=== PATIENT | male | born 1995 | race Caucasian/White ===

== ENCOUNTER 2018-09-10 18:23 | Emergency (ER) | payer MEDICAID ==
[~2018-09-10] VITALS: Wt 84.5 kg
[2018-09-10] MEDS ORDERED: CEPH-443 PO (21:39)
--- NOTE | 2018-09-10 21:45 | ERD ---
ER Documentation Chief Complaint Chief Complaint ATTEMPTED TO DRAIN BLEMISH ON FACE BY INCISION HPI 23-year-old male presents with ruptured cyst to the right side of his face. Patient states that 4 hours ago a pen knife and incised the cyst himself. Denies any fevers, discharge from the wound site. Up-to-date on tetanus. Denies past medical history. Denies allergies. Denies medications. Denies surgeries. Denies alcohol, tobacco, drug use. Up to date on vaccines. ROS All systems reviewed and are negative except as per history of present illness. Medications Home Meds Active Scripts Cephalexin* (Keflex*) 500 Mg Capsule, 500 MG PO QID for skin infection for 5 Days, #20 CAP Prov:SATHYA MORRIS 09/10/18 Allergies Allergies: Coded Allergies: No Known Allergy (Unverified , 10/11/13) PMhx/Soc Medical and Surgical Hx: pt denies Medical Hx, pt denies Surgical Hx History of Surgery: No Anesthesia Reaction: No Hx Neurological Disorder: No Hx Respiratory Disorders: No Hx Cardiac Disorders: No Hx Psychiatric Problems: No Hx Miscellaneous Medical Probl: No Hx Alcohol Use: Yes Hx Substance Use: No Hx Tobacco Use: No Smoking Status: Never smoker FmHx Family History: No diabetes, No coronary disease, No other Physical Exam Vitals Vital Signs Date Temp Pulse Resp B/P (MAP) Pulse Ox O2 O2 Flow FiO2 Time Delivery Rate 09/10/18 98.0 83 18 129/65 97 Room Air 21:51 (86) 09/10/18 98.4 84 18 140/74 98 19:01 (96) Physical Exam Const: No acute distress Resp: Clear to auscultation bilaterally Cardio: Regular rate and rhythm, no murmurs Skin: 1 cm linear abrasion to right cheek. Partial thickness. No discharge or edema noted. No foreign bodies noted. Psych: Normal Mood and Affect Procedures/MDM ER Course: Wound irrigated and dressed in clean dressing. MDM: 23-year-old male presents with ruptured cyst to the right side of his face. Patient states that 4 hours ago a pen knife and incised the cyst himself. Denies any fevers, discharge from the wound site. Up-to-date on tetanus. Based on the wound being only partial thickness in the history being consistent with a ruptured cyst, decision was made to let the wound close by secondary intention. Wound irrigated in the ER. Patient given Rx of Keflex to prevent infection. Patient advised to follow-up in 2 days for recheck. Patient discharged with strict ER precautions. Patient advised to follow up with PMD. All questions answered at discharge. Departure Diagnosis: Primary Impression: Ruptured epidermal cyst Condition: Stable Patient Instructions: Abscess, Antiobiotic Treatment Only Referrals: [facility] YOU HAVE RECEIVED A MEDICAL SCREENING EXAM AND THE RESULTS INDICATE THAT YOU DO NOT HAVE A CONDITION THAT REQUIRES URGENT TREATMENT IN THE EMERGENCY DEPARTMENT. FURTHER EVALUATION AND TREATMENT OF YOUR CONDITION CAN WAIT UNTIL YOU ARE SEEN IN YOUR DOCTORS OFFICE WITHIN THE NEXT 1-2 DAYS. IT IS YOUR RESPONSIBILITY TO MAKE AN APPOINTMENT FOR FOLOW-UP CARE. IF YOU HAVE A PRIMARY DOCTOR --you should call your primary doctor and schedule an appointment IF YOU DO NOT HAVE A PRIMARY DOCTOR YOU CAN CALL OUR PHYSICIAN REFERRAL HOTLINE AT IF YOU CAN NOT AFFORD TO SEE A PHYSICIAN YOU CAN CHOSE FROM THE FOLLOWING [facility] [address] [facility] [address] [facility] [place] [address] [facility] [address] [facility] [address] [facility]. [address] Additional Instructions: FOLLOW UP WITH YOUR PRIMARY CARE PHYSICIAN TOMORROW.Return to this facility in 2 days for wound recheck. SATHYA MORRIS Sep 10, 2018 21:45
[2018-09-10 21:51] VITALS: BP 129/65; PULSE 83; RESP 18
== END 2018-09-10 21:51 | disposition home or self-care (01) ==
LOC: FTE 18:23
DX: L72.0 Epidermal cyst (principal); S00.81XA Abrasion of other part of head, initial encounter; X58.XXXA Exposure to other specified factors, initial encounter
CPT/HCPCS: 99283